=== PATIENT | male | born 1990 | race Caucasian/White ===

== ENCOUNTER 2019-12-30 18:23 | Emergency (ER) | payer BC ==
[2019-12-30 18:35] VITALS: BP 125/73
[2019-12-30] MEDS ORDERED: BENZOCAINE SPRAY MM STA (18:38)
[2019-12-30] MEDS ORDERED: BUFFERED LIDOCAINE 10 ML SYRINGE SUBQ STA (18:38)
--- NOTE | 2019-12-30 18:39 | ED Physician Documentation ---
PD HPI HEENT - Stated complaint Stated Complaint: MOUTH PX/SWELLING RT SIDE, DANIELLE - Chief complaint Chief Complaint: Heent - History obtained from History obtained from: Patient (He has a dental infection from a cavity. He actually saw dentist yesterday looks like he had a partial root canal but got more swelling today despite being on amoxicillin. No fevers.) Review of Systems Constitutional: reports: Reviewed and negative Eyes: reports: Reviewed and negative Ears: reports: Reviewed and negative Nose: reports: Reviewed and negative PD PAST MEDICAL HISTORY - Present Medications Home Medications: Ambulatory Orders Medication Instructions Recorded Confirmed Amoxicillin 250 mg PO 12/30/19 Hydrocodone/Acetaminophen 1 - 2 tab PO Q6H PRN #15 tablet 12/30/19 [Hydrocodone-Acetamin 5-325 mg] - Allergies Allergies/Adverse Reactions: Allergies Allergy/AdvReac Type Severity Reaction Status Date / Time No Known Drug Allergies Allergy Verified 12/30/19 18:32 PD ED PE NORMAL - Vitals Vital signs reviewed: Yes - General General: Alert and oriented X 3, No acute distress - HEENT HEENT: Other (There is a large pointed abscess lateral to a right max premolar that has a large cavity) - Neuro Neuro: Alert and oriented X 3, Normal speech Results - Vitals Vitals: Vital Signs - 24 hr 12/30/19 18:32 Temperature 36.8 C Heart Rate 70 Respiratory 16 Rate Blood Pressure 125/73 O2 Saturation 98 Oxygen O2 Source Room air Procedures - Abscess I&D (location) dental, R maxillary Preparation: Lidocaine 1%, Other (The lidocaine gel followed by infraorbital block, intraoral approach with buffered lidocaine) Incision: Incised with scalpel, Purulent drainage (Quite a bit of pus was returned and the cavity was deloculated with hemostat) Other: Pt tolerated well, Dressing applied Departure - Departure Disposition: Home, Self Care Clinical Impression: Dental abscess Condition: Good Record reviewed to determine appropriate education?: Yes Instructions: ED Abscess Dental Prescriptions: Hydrocodone/Acetaminophen [Hydrocodone-Acetamin 5-325 mg] 1 - 2 tab PO Q6H PRN #15 tablet PRN Reason: Pain Comments: Continue your current antibiotic. Call your dentist on Wednesday to see if he wants to expedite your follow-up appointment noting that we incised and drained a large dental abscess today. Return if worsening.
[2019-12-30] MEDS ORDERED: LIDOCAINE TOPICAL 4% 50 ML BOTTLE MM STA (18:43)
[2019-12-30] MEDS ORDERED: HYDROcod/ACET 5/325 Prepack 4 PO STA (19:14)
== END 2019-12-30 19:36 | disposition home or self-care (01) ==
LOC: ED 18:23
DX: K04.7 Periapical abscess without sinus (principal)
CPT/HCPCS: 41800; 99283

== ENCOUNTER 2020-03-31 21:48 | Outpatient (CLI) | payer MEDICAID | END 2020-03-31 21:49 | disposition critical access hospital (66) | LOC: EMS 21:48 | PROVIDERS: ATTEND Surgery | DX: R45.851 Suicidal ideations (principal) | CPT/HCPCS: A0425; A0429 ==

== ENCOUNTER 2020-03-31 22:25 | Emergency (ER) | payer SELFPAY ==
--- NOTE | 2020-03-31 22:38 | ED Physician Documentation ---
PD HPI MHE - Stated complaint Stated Complaint: SI - Chief complaint Chief Complaint: MHE - History obtained from History obtained from: Patient - History of Present Illness Primary symptom: Suicidal ideation (Been feeling depressed. No particular trigger this evening but states he felt the desire to go up to the bridge and was considering jumping off when seen by bystanders and the police were called. He told them he was going to jump off but came with them here without resistance per se.) Timing - onset: Today Contributing factors: Other (has had depression but cannot describe any particular trigger leading to feeling suicidal today.). No: Sig other, Money, Substance abuse - ETOH, Substance abuse - drugs Recently seen: Not recently seen Review of Systems Constitutional: denies: Fever Nose: denies: Rhinorrhea / runny nose, Congestion Throat: denies: Sore throat Cardiac: denies: Chest pain / pressure Respiratory: denies: Dyspnea, Cough GI: denies: Abdominal Pain, Nausea, Vomiting, Diarrhea Neurologic: denies: Near syncope, Altered mental status, Headache Psychiatric: reports: Depressed, Suicidal. denies: Hallucinations, Anxiety, Insomnia Immunocompromised: denies: Immunocompromised PD PAST MEDICAL HISTORY - Past Medical History Cardiovascular: None Respiratory: None Neuro: None Endocrine/Autoimmune: None Psych: Depression (without any medications nor therapy/counseling) - Present Medications Home Medications: Ambulatory Orders Medication Instructions Recorded Confirmed No Known Home Medications 03/31/20 03/31/20 - Allergies Allergies/Adverse Reactions: Allergies Allergy/AdvReac Type Severity Reaction Status Date / Time No Known Drug Allergies Allergy Verified 03/31/20 22:35 - Living Situation Living Arrangement: reports: At home - Social History Does the pt smoke?: No Smoking Status: Never smoker Does the pt drink ETOH?: No Substance Use and Type: Marijuana PD ED PE NORMAL - Vitals Vital signs reviewed: Yes - General General: Alert and oriented X 3, No acute distress, Well developed/nourished, Other (He seems very calm and nonchalant about his statement that he felt he wanted to jump off the bridge.) - HEENT HEENT: Atraumatic - Neck Neck: Supple, no meningeal sign, No adenopathy - Cardiac Cardiac: RRR, No murmur - Respiratory Respiratory: Clear bilaterally - Abdomen Abdomen: Soft, Non tender - Derm Derm: Normal color, Warm and dry - Neuro Neuro: Alert and oriented X 3, No motor deficit, Normal speech Eye Opening: Spontaneous Motor: Obeys Commands Verbal: Oriented GCS Score: 15 - Psych Psych: Normal mood, Normal affect (calm and seems detached from the event of considering jumping off the bridge.) Results - Vitals Vitals: Vital Signs - 24 hr 03/31/20 04/01/20 22:27 06:33 Temperature 36.8 C 36.8 C Heart Rate 85 58 L Respiratory 20 12 Rate Blood Pressure 133/95 H 104/65 O2 Saturation 98 99 Oxygen O2 Source Room air - Labs Labs: Laboratory Tests 03/31/20 03/31/20 03/31/20 22:49 22:49 22:49 WBC 15.9 H RBC 4.36 L Hgb 13.1 L Hct 40.0 L MCV 91.7 MCH 30.0 MCHC 32.8 RDW 12.4 Plt Count 362 MPV 9.4 Neut # (Auto) 13.0 H Lymph # (Auto) 1.7 [place] # (Auto) 0.9 Eos # (Auto) 0.1 Baso # (Auto) 0.1 Absolute Nucleated RBC 0.00 Nucleated RBC % 0.0 Sodium 138 Potassium 3.8 Chloride 101 Carbon Dioxide 25 Anion Gap 12.0 BUN 11 Creatinine 0.8 Estimated GFR (MDRD) 114 Glucose 92 Calcium 9.2 Total Bilirubin 1.0 AST 17 ALT 13 Alkaline Phosphatase 46 Total Protein 7.3 Albumin 4.6 Globulin 2.7 Albumin/Globulin Ratio 1.7 Lipase 22 TSH 0.57 Urine Color Urine Clarity Urine pH Ur Specific [place] Urine Protein Urine Glucose (UA) Urine Ketones Urine Occult Blood Urine Nitrite Urine Bilirubin Urine Urobilinogen Ur Leukocyte Esterase Urine RBC Urine WBC Ur Squamous Epith Cells Urine Bacteria Ur Microscopic Review Urine Culture Comments Nasal Adenovirus (PCR) Nasal B. parapertussis DNA (PCR) Nasal Coronavir 229E PCR Nasal Coronavir HKU1 PCR Nasal Coronavir NL63 PCR Nasal Coronavir OC43 PCR Nasal Enterovir/Rhinovir PCR Nasal Influenza B PCR Nasal Influenza A PCR Nasal Parainfluen 1 PCR Nasal Parainfluen 2 PCR Nasal Parainfluen 3 PCR Nasal Parainfluen 4 PCR Nasal RSV (PCR) Nasal B.pertussis DNA PCR Nasal C.pneumoniae (PCR) Mario Human Metapneumo PCR Nasal M.pneumoniae (PCR) Nasal SARS-CoV-2 (PCR) Salicylates < 6.0 Urine Opiates Screen Ur Oxycodone Screen Urine Methadone Screen Ur Propoxyphene Screen Acetaminophen < 10 L Ur Barbiturates Screen Ur Tricyclics Screen Ur Phencyclidine Scrn Ur Amphetamine Screen U Methamphetamines Scrn U Benzodiazepines Scrn Urine Cocaine Screen U Cannabinoids Screen Ethyl Alcohol < 5.0 03/31/20 04/01/20 23:28 02:35 WBC RBC Hgb Hct MCV MCH MCHC RDW Plt Count MPV Neut # (Auto) Lymph # (Auto) [place] # (Auto) Eos # (Auto) Baso # (Auto) Absolute Nucleated RBC Nucleated RBC % Sodium Potassium Chloride Carbon Dioxide Anion Gap BUN Creatinine Estimated GFR (MDRD) Glucose Calcium Total Bilirubin AST ALT Alkaline Phosphatase Total Protein Albumin Globulin Albumin/Globulin Ratio Lipase TSH Urine Color YELLOW Urine Clarity CLEAR Urine pH 5.5 Ur Specific [place] 1.025 Urine Protein NEGATIVE Urine Glucose (UA) NEGATIVE Urine Ketones 15 H Urine Occult Blood LARGE H Urine Nitrite NEGATIVE Urine Bilirubin NEGATIVE Urine Urobilinogen 0.2 (NORMAL) Ur Leukocyte Esterase NEGATIVE Urine RBC 11-25 H Urine WBC 0-3 Ur Squamous Epith Cells NONE SEEN Urine Bacteria None Seen Ur Microscopic Review INDICATED Urine Culture Comments NOT INDICATED Nasal Adenovirus (PCR) NOT DETECTED Nasal B. parapertussis DNA (PCR) NOT DETECTED Nasal Coronavir 229E PCR NOT DETECTED Nasal Coronavir HKU1 PCR NOT DETECTED Nasal Coronavir NL63 PCR NOT DETECTED Nasal Coronavir OC43 PCR NOT DETECTED Nasal Enterovir/Rhinovir PCR NOT DETECTED Nasal Influenza B PCR NOT DETECTED Nasal Influenza A PCR NOT DETECTED Nasal Parainfluen 1 PCR NOT DETECTED Nasal Parainfluen 2 PCR NOT DETECTED Nasal Parainfluen 3 PCR NOT DETECTED Nasal Parainfluen 4 PCR NOT DETECTED Nasal RSV (PCR) NOT DETECTED Nasal B.pertussis DNA PCR NOT DETECTED Nasal C.pneumoniae (PCR) NOT DETECTED Mario Human Metapneumo PCR NOT DETECTED Nasal M.pneumoniae (PCR) NOT DETECTED Nasal SARS-CoV-2 (PCR) NOT DETECTED Salicylates Urine Opiates Screen NEGATIVE Ur Oxycodone Screen NEGATIVE Urine Methadone Screen NEGATIVE Ur Propoxyphene Screen NEGATIVE Acetaminophen Ur Barbiturates Screen NEGATIVE Ur Tricyclics Screen NEGATIVE Ur Phencyclidine Scrn NEGATIVE Ur Amphetamine Screen NEGATIVE U Methamphetamines Scrn NEGATIVE U Benzodiazepines Scrn NEGATIVE Urine Cocaine Screen NEGATIVE U Cannabinoids Screen POSITIVE H Ethyl Alcohol PD MEDICAL DECISION MAKING - ED course Complexity details: reviewed results, considered differential (Patient states he has had depression. He is now feeling suicidal this evening and went to the bridge to jump off. He states he is not feeling that desire at the moment. However he could not tell me a precipitating factor or the "tipping point" that caused this desire this evening. Nonchalant.), d/w patient, d/w financial services consultant (I talked with the niece who is on-call for the DCR program and she talked with me and then the patient and then feedback to me is she did not feel the patient was safe for discharge and was looking for admission facility.) ED course: At change of shift, I still have not heard back from the DCR about any excepting facilities. This point care will be transferred over to Dr. Sierra the oncoming ER physician. Patient has remained calm and polite. Departure - Departure Clinical Impression: Suicidal ideation Depression Qualifiers: Depression Type: unspecified Qualified Code(s): F32.9 - Major depressive disorder, single episode, unspecified Condition: Stable Record reviewed to determine appropriate education?: Yes
[2020-03-31 22:52] LABS: BASOPHILS # (AUTO) 0.1 10^3/uL (0.0-0.1); BASOPHILS % (AUTO) 0.3 %; EOSINOPHILS # (AUTO) 0.1 10^3/uL (0.0-0.7); EOSINOPHILS % (AUTO) 0.5 %; HGB - HEMOGLOBIN 13.1 g/dL (14.0-18.0); LYMPHOCYTES # (AUTO) 1.7 10^3/uL (1.5-3.5); LYMPHOCYTES % (AUTO) 10.9 %; MEAN CORPUSCULAR HGB CONC 32.8 g/dL (32.0-36.0); MEAN CORPUSCULAR VOLUME 91.7 fL (80.0-94.0); MEAN PLATELET VOLUME 9.4 fL (7.4-11.4); MONOCYTES # (AUTO) 0.9 10^3/uL (0.0-1.0); MONOCYTES % (AUTO) 5.9 %; NEUTROPHILS % (AUTO) 82.1 %; PLT - PLATELET COUNT 362 10^3/uL (130-450); RED BLOOD COUNT 4.36 10^6/uL (4.70-6.10); RED CELL DISTRIBUTION WIDTH 12.4 % (12.0-15.0); WHITE BLOOD COUNT 15.9 x10^3/uL (4.8-10.8)
[2020-03-31 23:11] LABS: ACETAMINOPHEN < 10 ug/mL (10-30); ALBUMIN 4.6 g/dL (3.2-5.5); ALBUMIN/GLOBULIN RATIO 1.7 (1.0-2.2); ALKALINE PHOSPHATASE 46 IU/L (42-121); ALT ALANINE AMINOTRANSFERASE 13 IU/L (10-60); AST ASPARTATE AMINOTRANSFERASE 17 IU/L (10-42); BUN - BLOOD UREA NITROGEN 11 mg/dL (6-20); CALCIUM 9.2 mg/dL (8.5-10.3); CARBON DIOXIDE - CO2 25 mmol/L (21-32); CHLORIDE 101 mmol/L (101-111); CREATININE 0.8 mg/dL (0.6-1.2); GLUCOSE 92 mg/dL (70-100); LIPASE 22 U/L (22-51); SALICYLATE < 6.0 mg/dL; SODIUM 138 mmol/L (135-145); TOTAL PROTEIN 7.3 g/dL (6.7-8.2)
[2020-03-31 23:33] LABS: MUDS CUTOFF CONCENTRATIONS CUTOFF CONC BELOW:
[2020-03-31 23:39] LABS: CLARITY,URINE CLEAR (CLEAR); GLUCOSE, URINE (UA) NEGATIVE (NEGATIVE); KETONES,URINE (UA) 15 mg/dL (NEGATIVE); LEUKOCYTE ESTERASE, URINE NEGATIVE (NEGATIVE); NITRITE,URINE NEGATIVE (NEGATIVE); OCCULT BLOOD,URINE LARGE (NEGATIVE); PH,URINE 5.5 PH (5.0-7.5); PROTEIN,URINE NEGATIVE (NEGATIVE); UROBILINOGEN,URINE 0.2 (NORMAL) E.U./dL (NORMAL)
[2020-03-31 23:43] LABS: BILIRUBIN,URINE NEGATIVE (NEGATIVE); ICTOTEST,URINE NEGATIVE
[2020-03-31 23:51] LABS: AMPHETAMINE SCREEN,URINE NEGATIVE (NEGATIVE); BACTERIA,URINE None Seen /HPF (None Seen); BENZODIAZEPINES SCREEN, URINE NEGATIVE (NEGATIVE); COCAINE SCREEN URINE NEGATIVE (NEGATIVE); METHADONE SCREEN, URINE NEGATIVE (NEGATIVE); METHAMPHETAMINES SCREEN, URINE NEGATIVE (NEGATIVE); OPIATE SCREEN, URINE NEGATIVE (NEGATIVE); OXYCODONE SCREEN, URINE NEGATIVE (NEGATIVE); PROPOXYPHENE SCREEN, URINE NEGATIVE (NEGATIVE); SQUAMOUS EPITHELIAL CELL,UR NONE SEEN (<= Few); TRICYCLIC ANTIDEPRESSANT,URINE NEGATIVE (NEGATIVE)
[2020-04-01 03:30] LABS: C. PNEUMONIAE- RESP PCR PANEL NOT DETECTED
--- NOTE | 2020-04-01 18:33 | ED Physician Documentation ---
ED Addendum - Addendum Addendum: 04/01/20 18:32 29-year-old male evaluated in the emergency department by the DCR, Mehreen, she does not see grounds for detaining the patient. She states that he is able to contract for safety and able to follow-up with an outpatient counselor. He denies feeling suicidal at this time. He feels better and wants to see outpatient counseling. Resources were given to the patient. Patient counseled regarding signs and symptoms for which I believe and urgent re-evaluation would be necessary. Patient with good understanding of and agreement to plan and is comfortable going home at this time This document was made in part using voice recognition software. While efforts are made to proofread this document, sound alike and grammatical errors may occur. Departure - Departure Disposition: 01 Home, Self Care Clinical Impression: Suicidal ideation Depression Qualifiers: Depression Type: unspecified Qualified Code(s): F32.9 - Major depressive disorder, single episode, unspecified Condition: Stable Instructions: ED Depression Follow-Up: [facility] [Provider Group] [facility] [Provider Group] Comments: Please follow-up with one of the primary care clinics given to you raf. You also need to contact the psychiatric clinics that were given to you raf as well. Please return if you worsen. Crisis Line and is available to talk to someone [email or web address] is also available to chat with someone online if you prefer. There are also many resources on this website and apps for your phone to help with your mental health You can also text the word START to [phone] to chat with someome via text.
[2020-04-01 18:40] VITALS: BP 103/61
== END 2020-04-01 19:00 | disposition home or self-care (01) ==
LOC: ED 22:25
DX: F32.9 Major depressive disorder, single episode, unspecified (principal); R45.851 Suicidal ideations; Z20.828 Contact with and (suspected) exposure to other viral communicable diseases
CPT/HCPCS: 0202U; 36415; 80320; 80329; 81001; 83690; 93005; 99284; 80053; 80306; 80307; 81003; 84443; 85025; 87086

== ENCOUNTER 2020-04-26 17:33 | Emergency (ER) | payer OTHER, MEDICAID ==
--- NOTE | 2020-04-26 17:56 | ED Physician Documentation ---
History of Present Illness - Stated complaint Stated Complaint: INGESTION - Chief complaint Chief Complaint: MHE - History obtained from History obtained from: Patient, Police - History of Present Illness Timing: How many days ago (3) Pain level max: 0 Pain level now: 0 - Additonal information Additional information: 29-year-old male currently incarcerated. He states that 3 days ago he took dartura seens (jimsonweed). He has been incarcerated since that time. The [facility] states that he has had hallucinations. They also state that he has still been having some erratic behavior. The patient does have a mental health history and was seen in the emergency department about 3 weeks ago for considering jumping off a bridge. He was cleared by the DCR at that time. Patient currently has no complaints and states that he feels normal. He states he is not currently hallucinating. He states sometimes he does hear voices, this is an ongoing issue. This assisted nurse apparently spoke with poison control who recommended he come to the ER to have blood work performed and be monitored in the emergency department for 4 to 6 hours. Review of Systems Ten Systems: 10 systems reviewed and negative Constitutional: denies: Fever, Chills Eyes: denies: Photophobia Ears: denies: Ear pain Nose: denies: Rhinorrhea / runny nose, Congestion Throat: denies: Sore throat Respiratory: denies: Cough GI: denies: Abdominal Pain, Nausea, Vomiting, Diarrhea : denies: Dysuria Skin: denies: Rash Musculoskeletal: denies: Neck pain, Back pain Neurologic: denies: Head injury PD PAST MEDICAL HISTORY - Past Medical History Cardiovascular: None Respiratory: None Neuro: None Endocrine/Autoimmune: None Psych: Depression (without any medications nor therapy/counseling) - Past Surgical History Past Surgical History: No - Present Medications Home Medications: Ambulatory Orders Medication Instructions Recorded Confirmed No Known Home Medications 03/31/20 04/26/20 - Allergies Allergies/Adverse Reactions: Allergies Allergy/AdvReac Type Severity Reaction Status Date / Time No Known Drug Allergies Allergy Verified 04/26/20 17:59 - Social History Does the pt smoke?: No Smoking Status: Never smoker Does the pt drink ETOH?: No Does the pt have substance abuse?: No - Immunizations Immunizations are current?: No PD ED PE NORMAL - Vitals Vital signs reviewed: Yes - General General: Alert and oriented X 3, No acute distress, Well developed/nourished - HEENT HEENT: PERRL, Ears normal, Moist mucous membranes, Pharynx benign - Neck Neck: Supple, no meningeal sign, No bony TTP - Cardiac Cardiac: RRR, No murmur, Strong equal pulses - Respiratory Respiratory: No respiratory distress, Clear bilaterally - Abdomen Abdomen: Soft, Non tender, Non distended - Derm Derm: Warm and dry, No rash - Extremities Extremities: No edema, No calf tenderness / cord - Neuro Neuro: Alert and oriented X 3, accounts receivable analyst 2-12 intact, No motor deficit, No sensory deficit, Normal speech Eye Opening: Spontaneous Motor: Obeys Commands Verbal: Oriented GCS Score: 15 - Psych Psych: Normal mood, Normal affect Results - Vitals Vitals: Vital Signs - 24 hr 04/26/20 04/26/20 04/26/20 17:33 17:57 19:35 Temperature 36.8 C 36.8 C 36.8 C Heart Rate 83 72 71 Respiratory 16 16 16 Rate Blood Pressure 121/81 H 112/67 112/66 O2 Saturation 98 99 100 04/26/20 04/26/20 21:00 22:06 Temperature 36.8 C 36.8 C Heart Rate 68 65 Respiratory 16 16 Rate Blood Pressure 110/61 112/64 O2 Saturation 100 100 Oxygen O2 Source Room air - EKG (time done) 1759 Rate: Rate (enter#) (73) Rhythm: NSR [place]: Normal Intervals: Normal GA QRS: Normal Ischemia: Normal ST segments - Labs Labs: Laboratory Tests 04/26/20 04/26/20 04/26/20 18:00 18:00 18:00 WBC 7.8 RBC 4.10 L Hgb 12.3 L Hct 37.0 L MCV 90.2 MCH 30.0 MCHC 33.2 RDW 12.3 Plt Count 287 MPV 10.0 Neut # (Auto) 5.3 Lymph # (Auto) 1.8 [place] # (Auto) 0.5 Eos # (Auto) 0.2 Baso # (Auto) 0.0 Absolute Nucleated RBC 0.00 Nucleated RBC % 0.0 Sodium 139 Potassium 3.6 Chloride 105 Carbon Dioxide 26 Anion Gap 8.0 BUN 9 Creatinine 0.8 Estimated GFR (MDRD) 114 Glucose 117 H Calcium 8.4 L Total Bilirubin 0.6 AST 71 H ALT 22 Alkaline Phosphatase 36 L Total Protein 6.2 L Albumin 3.6 Globulin 2.6 Albumin/Globulin Ratio 1.4 Lipase 20 L TSH 0.53 Urine Color Urine Clarity Urine pH Ur Specific [place] Urine Protein Urine Glucose (UA) Urine Ketones Urine Occult Blood Urine Nitrite Urine Bilirubin Urine Urobilinogen Ur Leukocyte Esterase Ur Microscopic Review Urine Culture Comments Salicylates < 6.0 Urine Opiates Screen Ur Oxycodone Screen Urine Methadone Screen Ur Propoxyphene Screen Acetaminophen < 10 L Ur Barbiturates Screen Ur Tricyclics Screen Ur Phencyclidine Scrn Ur Amphetamine Screen U Methamphetamines Scrn U Benzodiazepines Scrn Urine Cocaine Screen U Cannabinoids Screen Ethyl Alcohol < 5.0 04/26/20 21:07 WBC RBC Hgb Hct MCV MCH MCHC RDW Plt Count MPV Neut # (Auto) Lymph # (Auto) [place] # (Auto) Eos # (Auto) Baso # (Auto) Absolute Nucleated RBC Nucleated RBC % Sodium Potassium Chloride Carbon Dioxide Anion Gap BUN Creatinine Estimated GFR (MDRD) Glucose Calcium Total Bilirubin AST ALT Alkaline Phosphatase Total Protein Albumin Globulin Albumin/Globulin Ratio Lipase TSH Urine Color YELLOW Urine Clarity CLEAR Urine pH 6.0 Ur Specific [place] >=1.030 H Urine Protein NEGATIVE Urine Glucose (UA) NEGATIVE Urine Ketones NEGATIVE Urine Occult Blood NEGATIVE Urine Nitrite NEGATIVE Urine Bilirubin NEGATIVE Urine Urobilinogen 1 (NORMAL) Ur Leukocyte Esterase NEGATIVE Ur Microscopic Review NOT INDICATED Urine Culture Comments NOT INDICATED Salicylates Urine Opiates Screen NEGATIVE Ur Oxycodone Screen NEGATIVE Urine Methadone Screen NEGATIVE Ur Propoxyphene Screen NEGATIVE Acetaminophen Ur Barbiturates Screen NEGATIVE Ur Tricyclics Screen NEGATIVE Ur Phencyclidine Scrn NEGATIVE Ur Amphetamine Screen NEGATIVE U Methamphetamines Scrn NEGATIVE U Benzodiazepines Scrn NEGATIVE Urine Cocaine Screen NEGATIVE U Cannabinoids Screen NEGATIVE Ethyl Alcohol PD MEDICAL DECISION MAKING - ED course Complexity details: reviewed results, re-evaluated patient, considered differential, d/w patient ED course: Patient was observed for 4 hours in the emergency department. No abnormalities. He appears to be at his normal baseline mental status. No acute lab abnormalities, EKG abnormalities or any other abnormalities. Patient is medically cleared to return to [facility] at this time. This document was made in part using voice recognition software. While efforts are made to proofread this document, sound alike and grammatical errors may occur. 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 There are no acute findings tonight on your laboratory testing, urinalysis or EKG. If the hallucinations continue, consultation with DCR and/or psychiatry is advised. This can be done while he is in [facility]. Discharge Date/Time: 04/26/20 22:06
[2020-04-26 18:14] LABS: BASOPHILS % (AUTO) 0.4 %; EOSINOPHILS # (AUTO) 0.2 10^3/uL (0.0-0.7); EOSINOPHILS % (AUTO) 2.6 %; HGB - HEMOGLOBIN 12.3 g/dL (14.0-18.0); LYMPHOCYTES # (AUTO) 1.8 10^3/uL (1.5-3.5); LYMPHOCYTES % (AUTO) 23.4 %; MEAN CORPUSCULAR HGB CONC 33.2 g/dL (32.0-36.0); MEAN CORPUSCULAR VOLUME 90.2 fL (80.0-94.0); MONOCYTES # (AUTO) 0.5 10^3/uL (0.0-1.0); MONOCYTES % (AUTO) 5.9 %; NEUTROPHILS # (AUTO) 5.3 10^3/uL (1.5-6.6); NEUTROPHILS % (AUTO) 67.3 %; PLT - PLATELET COUNT 287 10^3/uL (130-450); RED CELL DISTRIBUTION WIDTH 12.3 % (12.0-15.0); WHITE BLOOD COUNT 7.8 x10^3/uL (4.8-10.8)
[2020-04-26 18:28] LABS: ACETAMINOPHEN < 10 ug/mL (10-30); ALBUMIN 3.6 g/dL (3.2-5.5); ALBUMIN/GLOBULIN RATIO 1.4 (1.0-2.2); ALKALINE PHOSPHATASE 36 IU/L (42-121); ALT ALANINE AMINOTRANSFERASE 22 IU/L (10-60); AST ASPARTATE AMINOTRANSFERASE 71 IU/L (10-42); BILIRUBIN,TOTAL 0.6 mg/dL (0.2-1.0); BUN - BLOOD UREA NITROGEN 9 mg/dL (6-20); CALCIUM 8.4 mg/dL (8.5-10.3); CARBON DIOXIDE - CO2 26 mmol/L (21-32); CHLORIDE 105 mmol/L (101-111); CREATININE 0.8 mg/dL (0.6-1.2); GLUCOSE 117 mg/dL (70-100); LIPASE 20 U/L (22-51); SALICYLATE < 6.0 mg/dL; SODIUM 139 mmol/L (135-145); TOTAL PROTEIN 6.2 g/dL (6.7-8.2)
[2020-04-26 21:13] LABS: MUDS CUTOFF CONCENTRATIONS CUTOFF CONC BELOW:
[2020-04-26 21:23] LABS: BILIRUBIN,URINE NEGATIVE (NEGATIVE); GLUCOSE, URINE (UA) NEGATIVE (NEGATIVE); KETONES,URINE (UA) NEGATIVE (NEGATIVE); LEUKOCYTE ESTERASE, URINE NEGATIVE (NEGATIVE); NITRITE,URINE NEGATIVE (NEGATIVE); OCCULT BLOOD,URINE NEGATIVE (NEGATIVE); PROTEIN,URINE NEGATIVE (NEGATIVE); UROBILINOGEN,URINE 1 (NORMAL) E.U./dL (NORMAL)
[2020-04-26 21:25] LABS: CLARITY,URINE CLEAR (CLEAR)
[2020-04-26 21:43] LABS: AMPHETAMINE SCREEN,URINE NEGATIVE (NEGATIVE); BENZODIAZEPINES SCREEN, URINE NEGATIVE (NEGATIVE); COCAINE SCREEN URINE NEGATIVE (NEGATIVE); METHADONE SCREEN, URINE NEGATIVE (NEGATIVE); METHAMPHETAMINES SCREEN, URINE NEGATIVE (NEGATIVE); OPIATE SCREEN, URINE NEGATIVE (NEGATIVE); OXYCODONE SCREEN, URINE NEGATIVE (NEGATIVE); PROPOXYPHENE SCREEN, URINE NEGATIVE (NEGATIVE); TRICYCLIC ANTIDEPRESSANT,URINE NEGATIVE (NEGATIVE)
[2020-04-26 22:07] VITALS: BP 112/64
== END 2020-04-26 22:06 | disposition home or self-care (01) ==
LOC: ED 17:33
DX: T44.3X4A Poisoning by other parasympatholytics [anticholinergics and antimuscarinics] and spasmolytics, undetermined, initial encounter (principal); R44.0 Auditory hallucinations
CPT/HCPCS: 80053; 80306; 80307; 80320; 80329; 81001; 81003; 83690; 84443; 85025; 87086; 93005; 99284